=== PATIENT | female | born 1955 | race Caucasian/White ===

== ENCOUNTER 2016-10-09 19:10 | Emergency (ER) | payer OTHER ==
[~2016-10-09] VITALS: Ht 167.6 cm; Wt 72.1 kg
[~2016-10-09 19:10] MED LIST: ACETAMINOPHEN-1 EAC1 PO; ADVAIR 250-501 EACH IH; ASTROPRO; IBUPROFEN100 MG PO; PRILOSEC20 MG PO; SINGULAIR10 MG PO; SUDAFED30 MG PO; SYNTHROID88 MCG PO; ZETONNA6.1 GM NS
[2016-10-09] MEDS ORDERED: PERCOCET 5-3251 EACH PO (20:36)
[2016-10-10] MEDS ORDERED: ZOFRAN ODT4 MG PO (02:07)
[2017-02-08] MEDS ORDERED: FLOVENT HFA12 GM INH (13:21)
== END 2016-10-09 20:45 | disposition home or self-care (01) ==
LOC: ED 19:10
DX: N23 Unspecified renal colic (principal); J45.909 Unspecified asthma, uncomplicated; E03.9 Hypothyroidism, unspecified; Z88.5 Allergy status to narcotic agent; Z79.899 Other long term (current) drug therapy
CPT/HCPCS: 80053; 81001; 85025; 87077; 87088; 87186; 99283

== ENCOUNTER 2016-10-09 23:09 | Emergency (ER) | payer OTHER ==
[~2016-10-09] VITALS: Ht 167.6 cm; Wt 72.1 kg
[~2016-10-09 23:09] MED LIST changes: +PERCOCET 5-3251 EACH PO
[2016-10-10] MEDS ORDERED: ZOFRAN ODT4 MG PO (02:07)
[2017-02-08] MEDS ORDERED: FLOVENT HFA12 GM INH (13:21)
== END 2016-10-10 02:25 | disposition home or self-care (01) ==
LOC: ED 23:09
DX: N23 Unspecified renal colic (principal); J45.909 Unspecified asthma, uncomplicated; E03.9 Hypothyroidism, unspecified; Z88.5 Allergy status to narcotic agent; Z79.899 Other long term (current) drug therapy
CPT/HCPCS: 74176; 80053; 81001; 85025; 96361; 96374; 96375; 99284; J1170; J1885; J2405; J2550; J7030

== ENCOUNTER 2017-02-15 06:40 | Day surgery (SDC) | payer OTHER ==
[~2017-02-15] VITALS: Ht 167.6 cm; Wt 74.8 kg
[~2017-02-15 06:40] MED LIST changes: +FLOVENT HFA12 GM INH; +ZOFRAN ODT4 MG PO
[2017-02-15] MEDS ORDERED: BACTRIM DS TAB1 EACH PO (06:56)
--- NOTE | 2017-02-15 10:46 | NUR ---
02/15/17 1045 Joycelyn Ureña TO PACU, ORAL AIRWAY IN PLACE. AIRWAY ASSIST NEEDED. NON RESPONSIVE TO VOICE.
--- NOTE | 2017-02-15 11:08 | NUR ---
PT RETURNED FROM PACU. PT VERY DROWSY BUT RESPONDING APPROPRAITLY TO QUESTIONS. PT DENIES PAIN AND NAUSEA. FRIEND, JAIRON, AT BEDSIDE. BED RAILS UP, CALL LIGHT WITHIN REACH.
--- NOTE | 2017-02-15 12:08 | NUR ---
PT UP TO RESTROOM. PT REPORTS MINIMAL PAIN WITH URINATION. ABLE TO VOID 300 ML OF CLEAR YELLOW/PINK URIN. PT DENIES PAIN AND NAUSEA. CRACKERS PROVIDED FOR PT. PT BACK TO BED. BED RAILS UP, CALL LIGHT WITHIN REACH, FRIEND AT BEDSIDE.
--- NOTE | 2017-02-15 12:15 | NUR ---
HAND OFF REPORT GIVEN TO ZAHRAA ALLEN
--- NOTE | 2017-02-15 12:35 | NUR ---
PT REPORTS "I ATE MY CRACKERS AND FEEL GREAT. I'D LIKE TO GO HOME." I CHECK WITH PRIMARY RN AND SHE OKAYS PATIENT'S DISCHARGE. VERBAL DC INSTRUCTIONS GIVEN IN PRESENCE OF NIECE AND THEY BOTH VERBALIZE UNDERSTANDING. PT DRESSES SELF IN PRESENCE OF NIECE AND TRANSFERS SELF TO WELL AND IS DC HOME.
--- NOTE | 2017-02-19 11:49 | OR ---
[facility] [address] [facility] [place], [place] [address] Signed DATE OF OPERATION: 02/15/2017 SURGEON: Kylah Coronel MD PREOPERATIVE DIAGNOSES: 1. Intermittent left lower quadrant discomfort. 2. History of left distal ureteral calculus. POSTOPERATIVE DIAGNOSES: 1. Intermittent left lower quadrant discomfort. 2. History of left distal ureteral calculus. 3. No evidence of calculus present within the left ureter or within the bladder. NAMES OF PROCEDURES: 1. Urethral dilation, from 18-Syrian to 26-Syrian. 2. Diagnostic cystoscopy. 3. Left retrograde pyelogram. ANESTHESIA: General. ESTIMATED BLOOD LOSS: Minimal. COMPLICATIONS: None. SPECIMENS: None. DRAINS: None. INDICATIONS FOR PROCEDURE: Clary is a very pleasant 62-year-old female, who presented to my clinic about a week or so ago with complaints of intermittent left lower quadrant discomfort. She had presented to the emergency department earlier in the summer time of 2016 with severe left-sided flank pain. At that time, a CT scan revealed the presence of a 4 to 5 mm left ureterovesical junction calculus. She presented to my Clinic reporting that she felt as though she had not yet passed the stone. She underwent a KUB, which revealed no evidence of distal ureteral calculus. Despite this, the patient requested to undergo diagnostic evaluation to be sure that the stone was no longer present. FINDINGS: 1. On cystoscopy, there was no evidence of any suspicious masses, lesions, or stones within the bladder. Bilateral ureteral orifices are in their normal anatomic location and both were effluxing clear urine. 2. Left retrograde pyelogram revealed a normal left upper tract including normal kidney Electronically Signed By: KYLAH CORONEL MD 02/19/17 1149 PATIENT NAME: CLARY EDGAR OPERATIVE REPORT DATE OF : 55 PHYSICIAN: KYLAH CORONEL MD REPORT #: [id number] REPORT IS CONFIDENTIAL AND NOT TO BE RELEASED WITHOUT AUTHORIZATION [facility] [address] [place], [place] [address] Signed with no evidence of hydronephrosis or calyceal dilation. There was no evidence of filling defects, either in the kidney or within the left ureter. 3. Urethral dilation was performed. Attempts to pass the 22-Syrian sheath were met with some resistance. Therefore, the patient was dilated from 18-Syrian to 24-Syrian without difficulty. PROCEDURE: After informed consent was obtained, the patient was taken back to the operating room. She was [facility] to the operative room table where general anesthesia was induced. She was placed in the dorsal lithotomy position and her genitalia were prepped and draped in the standard sterile fashion. Attempts were made to pass the cystoscope through the urethra, however, I met some resistance, so decision was made to dilate the patient's urethra. A straight sounds were used to dilate the urethra from 18-Syrian to 24-Syrian, this occurred without difficulty. I then inserted the cystoscope via the 22-Syrian sheath through the urethra into the patient's bladder. Diagnostic cystoscopy was then performed. A cone-tipped catheter was then advanced to the left ureteral orifice and a left retrograde pyelogram was performed. Multiple pictures were taken. Please see the above findings. Once I was satisfied, there was no evidence of any filling defects within the entire kidney or left ureter. The patient's bladder was then drained and the cystoscope was removed. The procedure was terminated. The patient tolerated the procedure well without any complication. She will now be transferred to the postanesthesia care unit in stable condition. MD ERIK Wolfe/LILOL /[id number] Electronically Signed By: KYLAH CORONEL MD 02/19/17 1149 PATIENT NAME: CLARY EDGAR OPERATIVE REPORT DATE OF : 55 PHYSICIAN: KYLAH CORONEL MD REPORT #: [id number] REPORT IS CONFIDENTIAL AND NOT TO BE RELEASED WITHOUT AUTHORIZATION
== END 2017-02-15 12:35 | disposition home or self-care (01) ==
LOC: DS 06:40
PROVIDERS: Urology
PROC: BT1FYZZ Fluoroscopy of Left Kidney, Ureter and Bladder using Other Contrast (ICD-10-PCS; 2017-02-15)
PROC: 0T7D8ZZ Dilation of Urethra, Via Natural or Artificial Opening Endoscopic (ICD-10-PCS; principal; 2017-02-15 08:30)
DX: N36.8 Other specified disorders of urethra (principal); J45.909 Unspecified asthma, uncomplicated; Z87.442 Personal history of urinary calculi; Z90.49 Acquired absence of other specified parts of digestive tract; Z98.890 Other specified postprocedural states; Z88.5 Allergy status to narcotic agent
CPT/HCPCS: 00910; 74420; J0696; J1100; J1885; J2250; J2405; J2704; J2765; J3010; J7120; Q9967

== ENCOUNTER 2019-05-23 06:40 | Day surgery (SDC) | payer BC ==
--- NOTE | 2019-05-22 16:30 | NUR ---
THIS RN NOTIFIES DR. POSEY OF PT PAIN. DR. POSEY VERBALLY ORDERS SINGLE VIEW UPRIGHT CXR, ORDERS ENTERED. 1640: IMAGING IN PT ROOM. SPOUSE IN HALLWAY.
[~2019-05-23] VITALS: Ht 167.6 cm; Wt 73.9 kg
--- NOTE | ~2019-05-23 | OR ---
[facility] [address] [place], [place] [address] Draft DATE OF OPERATION: 05/23/2019 SURGEON: Grey Freitas MD PREOPERATIVE DIAGNOSIS: Chronic left maxillary sinusitis. POSTOPERATIVE DIAGNOSIS: Chronic left maxillary sinusitis. PROCEDURE PERFORMED: Left maxillary sinusotomy. ANESTHESIA: General LMA, DIPAK Lorenz. PREOPERATIVE HISTORY: Clary is a 64-year-old lady with chronic sinus problems. This basically was worsened after a left maxillary molar tooth extraction 18 months ago. She has had chronic drainage, abnormal dental x-rays, abnormal CAT scan despite appropriate antibiotics, medications, etc., showing a completely opacified left maxillary sinus. She is taken to the operating for the above-mentioned procedures. OPERATIVE PROCEDURE AND FINDINGS: After informed consent, the patient was taken to the operating room, placed in supine position where general LMA anesthesia was induced. The patient and procedure were verified. The patient received preoperative intranasal oxymetazoline and intravenous Ancef. The nasal cavity was inspected with the headlight and speculum. The left side middle turbinate was medialized. An antrostomy was made with a curved ring curette and suction produced copious mucopurulent drainage from the sinus. This was all suctioned clear. The antrostomy was widened with the Lee. There was some prominent arterial bleeding posteriorly near the nasal antral window site. This was controlled with suction cautery. Hemostasis was verified. Adequate antrostomy was verified. The sinus mucosa was curetted. The tissue was sent to pathology in formalin. After hemostasis was verified, the pharynx was suctioned clear of blood secretions. The patient was then awakened, extubated, transported to recovery room in good condition. No complications. BLOOD LOSS: Minimal. PATIENT NAME: CLARY EDGAR OPERATIVE REPORT DATE OF : 55 REPORT #: [id number] PHYSICIAN: GREY FREITAS MD PCP: TIFFANIE RODRÍGUEZ MD REPORT IS CONFIDENTIAL AND NOT TO BE RELEASED WITHOUT AUTHORIZATION [address] [place], [place] [address] Draft SPECIMEN: To pathology. DRAINS: No drains. PACKING: No packing. Grey Freitas MD GC/LUCY /[id number] Copies: ~ PATIENT NAME: CLARY EDGAR OPERATIVE REPORT DATE OF : 55 REPORT #: [id number] PHYSICIAN: GREY FREITAS MD PCP: TIFFANIE RODRÍGUEZ MD REPORT IS CONFIDENTIAL AND NOT TO BE RELEASED WITHOUT AUTHORIZATION
[~2019-05-23 06:40] MED LIST changes: +AUGMENTIN 875-1 EACH PO; +BACTRIM DS TAB1 EACH PO; +FLONASE ALLERG9.9 ML NAS
--- NOTE | 2019-05-23 09:09 | NUR ---
PATIENT INFORMED SURGERY IS DELAYED. PATIENT VERBALIZED UNDERSTANDING. NO OTHER NEEDS AT THIS TIME.
--- NOTE | 2019-05-23 10:04 | NUR ---
PT ALERT ORIENTED AND WAITING FOR RN TO COME AND BEGIN IV AND PREP. GAVE ENCOURAGEMENT TO PT, RN MAGDIEL IN TO BEGING SURGERY PREP. EXTENDED PT A BLESSING, WILL FOLLOW NEEDED
--- NOTE | 2019-05-23 10:40 | NUR ---
05/23/19 1040 Charo Del Toro 1034-PATIENT ARRIVED TO PACU ON 8L MASK NONAROUSABLE. ORAL AIRWAY IN PLACE. STUDENT RN HOLDING AIRWAY TO MAINTAIN OPEN. RR 10. SR. IVF INFUSING. DRESSING TO NOSE CDI WITH GAUZE
--- NOTE | 2019-05-23 12:19 | NUR ---
PATIENT REPORTED THROBBING PAIN, WOULD LIKE IBUPROFEN HOWEVER TOO SOON FOR ANY. PATIENT STATED " THIS COULD BE A CAFFEINE HEADACHE". PROVIDED PATIENT WITH ICE TEA. PATIENT SITTING UP IN BED. GAUZE TO NOSE C/D/I.
--- NOTE | 2019-05-23 13:09 | NUR ---
CALL TO DR. FREITAS TO REQUEST IBUPROFEN. MADE AWARE PATIENT RECIEVED TORADOL AT DURING SURGERY. VERBALIZED ONE TIME ORDER 400-800 MG IBUPROFEN PO. CALL TO PHARMACY TO CHECK SAFETY OF IBUPROFEN BEING ADMINISTERED NOW, TALKED WITH MARTHA WHO CHECKED PATIENT AGE AND LABS. MARTHA PHARMACIST VERBALIZED 600 MG PO IBUPROFEN ONE TIME WOULD BE OKAY AT THIS TIME. MADE PATIENT AWARE, WAITING FOR MEDICATION TO BE VERIFIED BY PHARMACY.
--- NOTE | 2019-05-23 13:45 | NUR ---
PROVIDED PATIENT WITH ICE TEA, PATIENT SPIT UP BLOOD CLOTS. NOTED PATIENT SNIFFLING, INTRUCTED PATIENT TO STOP. REINFORCED GAUZE WITH MORE GAUZE AND APPLIED PRESSURE. PATIENT REPORTED BLEEDING STOPPED AFTER 2 MINUTES OF APPLYING PRESSURE. REASSURED PATIENT NOSE WOULD BLEED ON AND OFF. PATIENT REPORTS PRESSURE IN HEAD IMPROVED AFTER CLOT CAME OUT, STATING " SO MUCH PRESSURE IS GONE".
--- NOTE | 2019-05-23 14:09 | NUR ---
VERBAL HANDOFF TO SAIMA MARTINO.
--- NOTE | 2019-05-23 15:10 | NUR ---
AVI 1435: PT IS UP TO THE BATHROOM WITH STANDBY ASSIST. SHE REPORTS BEING ABLE TO EMPTY HER BLADDER AND FEELS BETTER AFTER VOIDING. SHE INDICATES THAT SHE WOULD LIKE TO GO HOME. SHE IS EDUCATED ON HOW TO BEST DRESS HERSELF AND TO OPEN HER CURTAIN WHEN SHE IS READY.
--- NOTE | 2019-05-23 15:11 | NUR ---
LE 1440: PT IS GIVEN VERBAL AND WRITTEN DC INSTRUCTIONS. SHE VERBALIZES UNDERSTANDING. HER QUESTIONS ARE ASKED AND ANSWERED. SHE IS TAKEN OUT TO THE VEHICLE VIA WC, SHE IS ABLE TO TRANSFER HERSELF FORM WC TO VEHICLE.
--- NOTE | 2019-05-24 11:22 | PATH ---
[facility] [address] [place], [place] [address] Signed SPECIMEN(S): A LEFT MAXILLARY SINUS CONTENTS SPECIMEN SOURCE: A. LEFT MAXILLARY SINUS CONTENTS CLINICAL HISTORY: Pre: Chronic pansinusitis. Post: Same. FINAL PATHOLOGIC DIAGNOSIS: Sinus contents, left maxillary sinus, excision: - Sinonasal tissue with chronic sinusitis. NAL:cml:C2NR MICROSCOPIC EXAMINATION: Histologic sections of all submitted blocks are examined by light microscopy. These findings, together with the gross examination, support the pathologic diagnosis. GROSS DESCRIPTION: The specimen, labeled "JM, left maxillary sinus contents," per requisition, is received in formalin and consists of forman-pink soft tissue fragments with clot material measuring 1.7 x 1.2 x 0.3 cm in aggregate. The specimen is filtered and entirely submitted in cassette (A1). AT (under the direct supervision of a pathologist) The Gross Description was prepared using a voice recognition system. The report was reviewed for accuracy; however, sound-alike word errors, addition and/or deletions may occur. If there is any question about this report, please contact Client Services. PERFORMING LABORATORY: The technical component was performed by [employer], [address] [place] [id number] ([employer] Operator: Sandra Van MD; CLIA# [id number]). [facility], [address] [address] (CLIA# [id number]). Diagnostician: Megan Nova MD Pathologist Electronically Signed 05/24/2019 PATIENT NAME: BLANQUITA EDGAR PATHOLOGY DATE OF : 55 REPORT #: [id number] PHYSICIAN: [facility] PCP: TIFFANIE RODRÍGUEZ MD REPORT IS CONFIDENTIAL AND NOT TO BE RELEASED WITHOUT AUTHORIZATION [address] [place], [place] [address] Signed Copies: ~ PATIENT NAME: BLANQUITA EDGAR PATHOLOGY DATE OF : 55 REPORT #: [id number] PHYSICIAN: [facility] PCP: TIFFANIE RODRÍGUEZ MD REPORT IS CONFIDENTIAL AND NOT TO BE RELEASED WITHOUT AUTHORIZATION
== END 2019-05-23 14:45 | disposition home or self-care (01) ==
LOC: OPS 06:40 → DS 06:40 → OPS 08:15
PROVIDERS: Otolaryngology
PROC: 099R0ZZ Drainage of Left Maxillary Sinus, Open Approach (ICD-10-PCS; principal; 2019-05-23 08:15)
DX: J32.4 Chronic pansinusitis (principal); E03.9 Hypothyroidism, unspecified; E78.00 Pure hypercholesterolemia, unspecified; N20.0 Calculus of kidney; Z79.899 Other long term (current) drug therapy; Z88.5 Allergy status to narcotic agent; Z79.51 Long term (current) use of inhaled steroids; Z87.891 Personal history of nicotine dependence; Z87.09 Personal history of other diseases of the respiratory system
CPT/HCPCS: A9270; J1100; J1885; J2001; J2405; J2704; J3010; J7121

== ENCOUNTER 2021-03-24 00:23 | Emergency (ER) | payer BC ==
[~2021-03-24] VITALS: Ht 167.6 cm; Wt 77.1 kg
== END 2021-03-24 03:36 | disposition home or self-care (01) ==
LOC: ED 00:23
DX: U07.1 COVID-19 (principal); Z23 Encounter for immunization; J45.909 Unspecified asthma, uncomplicated; E03.9 Hypothyroidism, unspecified; Z87.891 Personal history of nicotine dependence; Z88.5 Allergy status to narcotic agent; Z79.899 Other long term (current) drug therapy
CPT/HCPCS: 99283-25; M0243; Q0244